=== PATIENT | male | born 1965 | race Two or more races ===

== ENCOUNTER 2019-06-21 17:43 | Outpatient (CLI) | payer MEDICARE | END 2019-06-21 23:59 | disposition home or self-care (01) | LOC: RAD 17:43 | PROVIDERS: ATTEND Internal Medicine | DX: R06.02 Shortness of breath (principal) | CPT/HCPCS: 71250 ==

== ENCOUNTER 2019-06-22 17:34 | Outpatient (CLI) | payer MEDICARE | END 2019-06-22 23:59 | disposition home or self-care (01) | LOC: LAB 17:34 | PROVIDERS: ATTEND Internal Medicine | DX: R05 Cough (principal) | CPT/HCPCS: 36415; 80053; 85025 ==